=== PATIENT | female | born 1990 | race Two or more races ===

== ENCOUNTER 2017-04-10 11:25 | Emergency (ER) | payer MEDICAID ==
[~2017-04-10] VITALS: Ht 175.3 cm; Wt 99.4 kg
[2017-04-10 13:38] LABS: HCG UR OBC PASS
[2017-04-10 13:43] LABS: ASPARTATE AMINO TRANSFERASE 16 U/L (15-37); BLOOD UREA NITROGEN 11 mg/dL (7-18)
[2017-04-10 14:37] VITALS: BP 142/84
== END 2017-04-10 14:42 | disposition home or self-care (01) ==
LOC: ED 13:10
DX: N89.8 Other specified noninflammatory disorders of vagina (principal); L20.9 Atopic dermatitis, unspecified
CPT/HCPCS: 36415; 80053; 81003; 81025; 83690; 85025; 87210; 87491; 87591; 87808; 99284